=== PATIENT | female | born 1990 | race Caucasian/White ===

== ENCOUNTER 2020-06-14 15:30 | Emergency (ER) | payer BC | END 2020-06-14 16:10 | disposition home or self-care (01) | LOC: JVIRT 15:30 | DX: Z03.818 Encounter for observation for suspected exposure to other biological agents ruled out (principal) | CPT/HCPCS: C9803; Q3014-GT; U0003 ==

== ENCOUNTER 2022-07-25 00:45 | Inpatient (IN) | payer BC ==
[2022-07-25] MEDS ORDERED: ELECTROLYTE-148 SOLN 500 ML IV ONE (01:30)
[2022-07-25] MEDS ORDERED: FENTANYL/BUPIVACAINE/NS/PF - PCEA - 50 ML DISP.SYRIN EP ONE ×2 (01:44→05:06)
[2022-07-25] MEDS ORDERED: BUPIVACAINE HCL/PF 0.25% (2.5MG/ML) 10 ML VIAL ONE (01:51)
[2022-07-25] MEDS: FENTANYL/BUPIVACAINE/NS/PF - PCEA - 50 ML DISP.SYRIN EP SCH ×2 (02:10→05:35)
[2022-07-25] MEDS ORDERED: NALOXONE HCL 0.4 MG/ML VIAL IVPUSH PRN (02:12)
[2022-07-25 02:20] LABS: BASO % 1.1 % (0-2.0); EOS % 0.6 % (0-4.5); HEMATOCRIT 34.5 % (32.4-45.2); HEMOGLOBIN 10.9 GM/dL (10.7-15.3); LYMPH % 18.9 % (8-40); MCHC 31.5 g/dl (32.0-36.0); MEAN CELL VOLUME 76.4 fl (80-96); MEAN PLT VOLUME 9.4 fl (7.5-11.1); MONO % 8.1 % (3.8-10.2); NEUT % 71.3 % (42.8-82.8); PLATELET COUNT 205 10^3/uL (134-434); RBC 4.52 M/mm3 (3.60-5.2); RDW 17.8 % (11.6-15.6); WHITE BLOOD COUNT 11.5 K/mm3 (4.0-10.0)
[2022-07-25 02:29] LABS: INR 0.92 (0.83-1.09); PROTHROMBIN TIME (PATIENT) 10.6 SEC (9.7-13.0)
[2022-07-25] MEDS ORDERED: ELECTROLYTE-148 SOLN 1,000 ML IV SCH (02:30)
[2022-07-25 02:32] LABS: ACTIVATED PTT 23.6 SECONDS (25.2-36.5)
[2022-07-25 02:38] LABS: BLOOD UREA NITROGEN 17.4 mg/dL (7-18); CALCIUM 9.6 mg/dL (8.5-10.1)
[2022-07-25 02:42] LABS: CREATININE 0.6 mg/dL (0.55-1.3)
[2022-07-25 05:25] VITALS: BMI 31.8
[2022-07-25] MEDS ORDERED: OXYTOCIN 20 UNITS in 0.9% NS 20 UNIT/1,000 ML INFUS.BAG IV ONE ×2 (06:24→09:02)
[2022-07-25] MEDS ORDERED: LIDOCAINE HCL 1% PRESERVATIVE FREE - 30ML VIAL ONE (06:24)
[2022-07-25] MEDS ORDERED: ACETAMINOPHEN 325 MG TABLET (FP) PO PRN (07:14)
[2022-07-25] MEDS ORDERED: WITCH HAZEL 50% (TUCKS) 40 PAD/JAR PAD TP PRN (07:14)
[2022-07-25] MEDS ORDERED: oxyCODONE HCL 5 MG TABLET PO PRN (07:14)
[2022-07-25] MEDS ORDERED: BISACODYL 10 MG SUPP.RECT RC PRN (07:14)
[2022-07-25] MEDS ORDERED: BENZOCAINE 20% 57 GM BOTTLE TP PRN (07:14)
[2022-07-25] MEDS ORDERED: BENZOCAINE 28 GM HEMORRHOIDAL OINTMENT TP PRN (07:14)
[2022-07-25] MEDS ORDERED: METHYLERGONOVINE MALEATE 0.2 MG/1 ML AMP IM PRN (07:14)
[2022-07-25] MEDS ORDERED: OXYTOCIN 20 UNITS in 0.9% NS 20 UNIT/1,000 ML INFUS.BAG IV SCH (07:15)
[2022-07-25] MEDS: IBUPROFEN 600 MG TABLET (FP) PO PRN ×2 (13:16→19:17)
[2022-07-25] MEDS: PRENATAL VITAMINS W/ FOLIC ACID TABLET (FP) PO SCH (13:18)
[2022-07-25 15:14] VITALS: RESP 18
[2022-07-26] MEDS: IBUPROFEN 600 MG TABLET (FP) PO PRN (06:06)
[2022-07-26 08:19] LABS: BASO % 0.8 % (0-2.0); EOS % 0.9 % (0-4.5); HEMATOCRIT 27.1 % (32.4-45.2); HEMOGLOBIN 8.7 GM/dL (10.7-15.3); LYMPH % 22.7 % (8-40); MCH 24.6 pg (25.7-33.7); MEAN CELL VOLUME 76.9 fl (80-96); MEAN PLT VOLUME 8.9 fl (7.5-11.1); MONO % 5.9 % (3.8-10.2); NEUT % 69.7 % (42.8-82.8); PLATELET COUNT 142 10^3/uL (134-434); RBC 3.52 M/mm3 (3.60-5.2); RDW 17.9 % (11.6-15.6)
[2022-07-26] MEDS: PRENATAL VITAMINS W/ FOLIC ACID TABLET (FP) PO SCH (09:25)
[2022-07-26 11:01] VITALS: BP 127/71; PULSE 85; TEMP 97.6
[2022-07-26] MEDS ORDERED: SENNOSIDES/DOCUSATE COMBO (SENNA PLUS) TABLET (UD) PO PRN (22:00)
== END 2022-07-26 15:05 | disposition home or self-care (01) | DRG 807 ==
LOC: JDEL 00:45 → JLDR 01:35 → J3W 09:30
PROVIDERS: ADMIT Obstetrics & Gynecology; ATTEND Obstetrics & Gynecology
PROC: 10E0XZZ Delivery of Products of Conception, External Approach (ICD-10-PCS; principal; 2022-07-25)
PROC: 0KQM0ZZ Repair Perineum Muscle, Open Approach (ICD-10-PCS; 2022-07-25)
DX: O24.420 Gestational diabetes mellitus in childbirth, diet controlled (principal); Z37.0 Single live birth; O70.1 Second degree perineal laceration during delivery; Z3A.38 38 weeks gestation of pregnancy
CPT/HCPCS: 36415; 59409; 80048; 85025; 85610; 85730; 86780; 86850; 86900; 86901; C9803-CS; U0003; U0005

== ENCOUNTER 2023-08-30 09:27 | Day surgery (SDC) | payer BC ==
[2023-08-30 11:32] VITALS: RESP 18
[2023-08-30] MEDS: IRON SUCROSE INJECTION 100 MG in SODIUM CHLORIDE 100 ML IVPB ONE (11:55)
[2023-08-30 12:33] VITALS: PULSE 78
[2023-08-30 13:02] VITALS: BP 140/88; TEMP 98
== END 2023-08-30 13:07 | disposition home or self-care (01) ==
LOC: JINFUSION 09:27 → J7W 09:30 → JINFUSION 09:30 → JASU-ENDO 13:07
PROVIDERS: ATTEND Internal Medicine Geriatric Medicine
PROC: 3E033GC Introduction of Other Therapeutic Substance into Peripheral Vein, Percutaneous Approach (ICD-10-PCS; principal; 2023-08-30)
DX: D50.9 Iron deficiency anemia, unspecified (principal)
CPT/HCPCS: 96365; J1756

== ENCOUNTER 2023-09-06 04:28 | Day surgery (SDC) | payer BC ==
[2023-09-06 07:17] VITALS: RESP 18
[2023-09-06] MEDS: IRON SUCROSE INJECTION 100 MG in SODIUM CHLORIDE 100 ML IVPB ONE (16:00)
[2023-09-06 17:13] VITALS: BP 126/80; PULSE 92; TEMP 97.9
== END 2023-09-06 17:00 | disposition home or self-care (01) ==
LOC: JASU-SURG 04:28 → JINFUSION 04:28 → JASU-SURG 17:00
PROVIDERS: ATTEND Internal Medicine Geriatric Medicine
PROC: 3E033GC Introduction of Other Therapeutic Substance into Peripheral Vein, Percutaneous Approach (ICD-10-PCS; principal; 2023-09-06)
DX: D50.9 Iron deficiency anemia, unspecified (principal)
CPT/HCPCS: 81025; 96365; J1756

== ENCOUNTER 2023-10-18 05:18 | Day surgery (SDC) | payer BC ==
[2023-10-18] MEDS ORDERED: IRON SUCROSE INJECTION 100 MG in SODIUM CHLORIDE 100 ML IVPB ONE (07:00)
[2023-10-18 07:08] VITALS: RESP 18
[2023-10-18 07:26] VITALS: TEMP 98.6
[2023-10-18 07:48] VITALS: BP 126/78; PULSE 74
== END 2023-10-18 08:06 | disposition home or self-care (01) ==
LOC: JINFUSION 05:18
PROVIDERS: ATTEND Internal Medicine Geriatric Medicine
PROC: 3E033GC Introduction of Other Therapeutic Substance into Peripheral Vein, Percutaneous Approach (ICD-10-PCS; principal; 2023-10-18)
DX: D50.9 Iron deficiency anemia, unspecified (principal)
CPT/HCPCS: 96365

== ENCOUNTER 2024-11-06 08:39 | Emergency (ER) | payer BC ==
[2024-11-06] MEDS ORDERED: FLUORESCEIN NA 1 EA STRIP ONE (09:02)
[2024-11-06] MEDS ORDERED: TETRACAINE 0.5% OPHTH SOLN 2 ML BOTTLE ONE (09:02)
[2024-11-06] MEDS ORDERED: LORATADINE 10 MG TABLET ONE (09:02)
[2024-11-06] MEDS: LORATADINE 10 MG TABLET PO ONE (09:04)
[2024-11-06] MEDS: FLUORESCEIN NA 1 EA STRIP OD ONE (09:05)
[2024-11-06] MEDS: TETRACAINE 0.5% HCL 0.6ML DROPPER.BOTTLE OD ONE (09:05)
[2024-11-06 09:10] VITALS: BP 138/80; PULSE 93; RESP 20; TEMP 97.7; BMI 26.2
== END 2024-11-06 09:36 | disposition home or self-care (01) ==
LOC: JERFT 08:39
DX: H10.9 Unspecified conjunctivitis (principal)
CPT/HCPCS: 99283-25